=== PATIENT | male | born 1985 | race Caucasian/White ===

== ENCOUNTER 2019-05-15 14:51 | Emergency (ER) | payer MEDICARE, OTHER ==
[~2019-05-15] VITALS: Ht 175.3 cm; Wt 95.2 kg
[~2019-05-15 14:51] MED LIST: TRAZ100 PO; [UNRECOGNIZED DRUG - REMARK]
[2019-05-15] MEDS ORDERED: CEPH500 PO (15:10)
[2019-05-15] MEDS ORDERED: Lamotrigine100 MG PO (15:12)
[2019-05-15] MEDS ORDERED: LATUDA20 MG PO (15:12)
[2019-05-15] MEDS ORDERED: Clonazepam0.5 MG PO (15:13)
[2019-05-15] MEDS ORDERED: Prozac40 MG PO (15:13)
== END 2019-05-15 15:17 | disposition home or self-care (01) ==
LOC: ER 14:51
DX: S50.862A Insect bite (nonvenomous) of left forearm, initial encounter (principal); W57.XXXA Bitten or stung by nonvenomous insect and other nonvenomous arthropods, initial encounter; L03.114 Cellulitis of left upper limb; Z79.899 Other long term (current) drug therapy
CPT/HCPCS: 99282